=== PATIENT | female | born 1970 | race Caucasian/White ===

== ENCOUNTER → 2018-09-01 | Outpatient (CLI) | payer BC ==
[2015-07-02 10:51] VITALS: BP 91/47
[~2018-09-01] MED LIST: ACET500T68 PO; HYDR-2765 PO; IBUP-1027 PO; KETO15VI18 IJ; MULT-246 PO; NAPR220C4 PO; OMEP20CA9 PO; TAMS0.4C97 PO
--- NOTE | 2018-09-01 16:13 | KCIC ---
EXAMINATION: Magnetic resonance imaging (MRI) of the cervical spine without contrast 09/01/2018 2:45 PM HISTORY: Right shoulder pain. Neck and right shoulder pain. 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 TECHNIQUE: Multiplanar multi-weighted MRI of the cervical spine was performed without intravenous contrast using the standard cervical spine protocol. Contrast information: None administered COMPARISON: None available. FINDINGS: There is minimal retrolisthesis of C5 on C6. Vertebral bodies demonstrate normal signal intensity on all sequences. No acute fracture is identified; however, if trauma is suspected, a CT scan would be a more sensitive examination for fractures. The craniocervical junction is normal. The visualized portions of the skull base and the posterior fossa are normal. The spinal cord demonstrates normal signal intensity on all sequences. There is mild disc height loss at C5-C6 with disc desiccation. No soft tissue abnormality is identified. Normal signal voids are present in the vertebral arteries. C2-C3: The disk is normal in configuration. There is no facet arthropathy. There is no uncovertebral joint disease. There is no neuroforaminal stenosis. There is no spinal canal stenosis. C3-C4: There is mild disc bulge. There is no facet arthropathy. There is no uncovertebral joint disease. There is no neuroforaminal stenosis. There is no spinal canal stenosis. C4-C5: There is a posterior disc osteophyte complex asymmetric to the left. There is mild facet arthropathy. There is mild uncovertebral joint disease. There is mild bilateral neuroforaminal stenosis. There is mild spinal canal stenosis. C5-C6: There is a posterior disc osteophyte complex. There is mild facet arthropathy. There is mild to moderate uncovertebral joint disease. There is mild to moderate right and mild left neuroforaminal stenosis. There is mild spinal canal stenosis. C6-C7: There is a posterior disc osteophyte complex. There is mild facet arthropathy. There is mild uncovertebral joint disease. There is mild neuroforaminal stenosis. There is no spinal canal stenosis. C7-T1: The disk is normal in configuration. There is no facet arthropathy. There is no uncovertebral joint disease. There is no neuroforaminal stenosis. There is no spinal canal stenosis. IMPRESSION: Mild degenerative changes of the cervical spine as described in detail above. Electronically signed by: Isidra Kelley MD (09/01/2018 3:35 PM) [facility]
== END | disposition home or self-care (01) ==
LOC: KCIC MRI 14:34
PROVIDERS: ATTEND Orthopaedic Surgery
DX: M25.511 Pain in right shoulder (principal); M47.892 Other spondylosis, cervical region; M48.02 Spinal stenosis, cervical region; M25.78 Osteophyte, vertebrae; M12.88 Other specific arthropathies, not elsewhere classified, other specified site
CPT/HCPCS: 72141

== ENCOUNTER 2020-05-19 15:39 | Emergency (ER) | payer OTHER, BC ==
[~2020-05-19] VITALS: Ht 162.6 cm; Wt 68.9 kg
[~2020-05-19 15:39] MED LIST changes: +OMEP20CA16 PO; -OMEP20CA9 PO
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
[2020-05-19] MEDS ORDERED: CYCL10TA2 PO (17:45)
[2020-05-19] MEDS ORDERED: NAPR-514 PO (17:45)
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
[2020-05-19 17:56] VITALS: BP 118/60
== END 2020-05-19 17:56 | disposition home or self-care (01) ==
LOC: ER 15:39
DX: S39.012A Strain of muscle, fascia and tendon of lower back, initial encounter (principal); R07.89 Other chest pain; M54.2 Cervicalgia; R07.81 Pleurodynia; M79.7 Fibromyalgia; Z90.710 Acquired absence of both cervix and uterus; Z98.890 Other specified postprocedural states; V49.9XXA Car occupant (driver) (passenger) injured in unspecified traffic accident, initial encounter; Y93.89 Activity, other specified; Y92.413 State road as the place of occurrence of the external cause; Y99.8 Other external cause status
CPT/HCPCS: 71101; 99283

== ENCOUNTER 2020-11-22 06:21 | Emergency (ER) | payer BC, OTHER ==
[~2020-11-22] VITALS: Ht 162.6 cm; Wt 64.5 kg
[~2020-11-22 06:21] MED LIST changes: +CYCL10TA2 PO; +NAPR-514 PO
[2020-11-22] MEDS ORDERED: IV NORMAL SALINE 1000ML BAG 1,000 ML IV SCH (06:45)
[2020-11-22] MEDS ORDERED: ONDANSETRON PF 4 MG/2 ML VIAL. IVP ONE (06:45)
[2020-11-22] MEDS ORDERED: KETOROLAC 30 MG/ML VIAL. IVP ONE (06:45)
--- NOTE | 2020-11-22 06:46 | PHYS DOC ---
Past Medical History Past Medical History: Other Additional Past Medical Histor: FIBROMYALGIA Past Surgical History: Hysterectomy, Other Additional Past Surgical Histo: breast augmentation Smoking Status: Never Smoker Alcohol Use: Rarely Drug Use: None Adult General Chief Complaint Chief Complaint: FLANK PAIN [facility] HPI Patient is a 49 year old female with a past medical history of kidney stones and fibromyalgia now presents emergency department complaining of new onset of bilateral flank pain. Patient states her last 2 months ago having worsening s ensation of bilateral flank pain which primarily starts in the upper portion of the back and radiates to the anterior ribs. Patient states been associated with mild nausea. Patient notes that the pain is constant but it does have some fluctuating intensity throughout the day most severe in the mornings or when she is lying down. Patient notes that for example last 1:59 AM she was lying in bed and suddenly had spasm and pain. Patient states this does feel similar to when she previously was diagnosed with renal stone. Patient also notes that she was seen by her primary care physician approximately 1 week ago was noted to have a large amount of blood in her urine. Patient has required lithotripsy in the past. Currently denies any fever, chills, nausea, vomiting, dizziness or lightheadedness Review of Systems Review of Systems Constitutional: Denies fever or chills [] Eyes: Denies change in visual acuity, redness, or eye pain [] HENT: Denies nasal congestion or sore throat [] Respiratory: Denies cough or shortness of breath [] Cardiovascular: No additional information not addressed in HPI [] GI: Denies abdominal pain, nausea, vomiting, bloody stools or diarrhea [] : Denies dysuria or hematuria [] Musculoskeletal: Denies back pain or joint pain [] Integument: Denies rash or skin lesions [] Neurologic: Denies headache, focal weakness or sensory changes [] Endocrine: Denies polyuria or polydipsia [] All other systems were reviewed and found to be within normal limits, except as documented in this note. Current Medications Current Medications Current Medications Medications (Trade) Dose Ordered Sig/Jackeline Start Time Stop Time Status Last Admin Dose Admin Ketorolac Tromethamine (Toradol 30mg Vial) 30 mg 1X ONCE 11/22/20 06:45 11/22/20 06:46 DC 11/22/20 07:03 30 MG Ondansetron HCl (Zofran) 4 mg 1X ONCE 11/22/20 06:45 11/22/20 06:46 DC 11/22/20 07:02 4 MG Sodium Chloride 1,000 ml @ 1,000 mls/hr Q1H 11/22/20 06:45 11/22/20 07:44 DC 11/22/20 07:03 1,000 MLS/HR Allergies Allergies Allergies Coded Allergies Type Severity Reaction Last Updated Verified Cephalosporins Allergy Unknown 11/22/20 Yes Uncoded Allergies Type Severity Reaction Last Updated Verified "a real strong antibiotic" Allergy Intermediate hives 05/19/20 Physical Exam Physical Exam Constitutional: Well developed, well nourished, no acute distress, non-toxic appearance. [] HENT: Normocephalic, atraumatic, bilateral external ears normal, oropharynx moist, no oral exudates, nose normal. [] Eyes: PERRLA, EOMI, conjunctiva normal, no discharge. [] Neck: Normal range of motion, no tenderness, supple, no stridor. [] Cardiovascular:Heart rate regular rhythm, no murmur [] Lungs & Thorax: Bilateral breath sounds clear to auscultation [] Abdomen: Bowel sounds normal, soft, no tenderness, no masses, no pulsatile masses. [] Skin: Warm, dry, no erythema, no rash. [] Back: No tenderness, no CVA tenderness. [] Extremities: No tenderness, no cyanosis, no clubbing, ROM intact, no edema. [] Neurologic: Alert and oriented X 3, normal motor function, normal sensory function, no focal deficits noted. [] Psychologic: Affect normal, judgement normal, mood normal. [] Current Patient Data Vital Signs Vital Signs Date Time Temp Pulse Resp B/P (MAP) Pulse Ox O2 Delivery O2 Flow Rate FiO2 11/22/20 06:30 98.5 74 18 114/71 (85) 100 Room Air 98.5 Lab Values Laboratory Tests Test 11/22/20 06:30 11/22/20 06:32 11/22/20 06:38 Urine Collection Type Void Urine Color Yellow Urine Clarity Clear Urine pH 5.5 (<5.0-8.0) Urine Specific [place] 1.025 (1.000-1.030) Urine Protein Negative mg/dL (NEG-TRACE) Urine Glucose (UA) Negative mg/dL (NEG) Urine Ketones (Stick) Negative mg/dL (NEG) Urine Blood Moderate (NEG) Urine Nitrite Negative (NEG) Urine Bilirubin Negative (NEG) Urine Urobilinogen Dipstick 0.2 mg/dL (0.2 mg/dL) Urine Leukocyte Esterase Negative (NEG) Urine RBC 0 /HPF (0-2) Urine WBC 1-4 /HPF (0-4) Urine Squamous Epithelial Cells Mod /LPF Urine Bacteria 0 /HPF (0-FEW) Urine Hyaline Casts Few /HPF Urine Mucus Mod /LPF POC Urine HCG, Qualitative Hcg negative (Negative) White Blood Count 5.4 x10^3/uL (4.0-11.0) Red Blood Count 4.38 x10^6/uL (3.50-5.40) Hemoglobin 13.1 g/dL (12.0-15.5) Hematocrit 38.1 % (36.0-47.0) Mean Corpuscular Volume 87 fL (79-100) Mean Corpuscular Hemoglobin 30 pg (25-35) Mean Corpuscular Hemoglobin Concent 34 g/dL (31-37) Red Cell Distribution Width 13.3 % (11.5-14.5) Platelet Count 322 x10^3/uL (140-400) Neutrophils (%) (Auto) 54 % (31-73) Lymphocytes (%) (Auto) 33 % (24-48) Monocytes (%) (Auto) 8 % (0-9) Eosinophils (%) (Auto) 4 % (0-3) H Basophils (%) (Auto) 1 % (0-3) Neutrophils # (Auto) 2.9 x10^3/uL (1.8-7.7) Lymphocytes # (Auto) 1.8 x10^3/uL (1.0-4.8) Monocytes # (Auto) 0.4 x10^3/uL (0.0-1.1) Eosinophils # (Auto) 0.2 x10^3/uL (0.0-0.7) Basophils # (Auto) 0.1 x10^3/uL (0.0-0.2) Sodium Level 138 mmol/L (136-145) Potassium Level 3.7 mmol/L (3.5-5.1) Chloride Level 103 mmol/L (98-107) Carbon Dioxide Level 29 mmol/L (21-32) Anion Gap 6 (6-14) Blood Urea Nitrogen 9 mg/dL (7-20) Creatinine 0.8 mg/dL (0.6-1.0) Estimated GFR (Cockcroft-Gault) 76.6 BUN/Creatinine Ratio 11 (6-20) Glucose Level 94 mg/dL (70-99) Calcium Level 9.2 mg/dL (8.5-10.1) Total Bilirubin 0.5 mg/dL (0.2-1.0) Aspartate Amino Transferase (AST) 24 U/L (15-37) Alanine Aminotransferase (ALT) 52 U/L (14-59) Alkaline Phosphatase 120 U/L (46-116) H Total Protein 8.1 g/dL (6.4-8.2) Albumin 3.6 g/dL (3.4-5.0) Albumin/Globulin Ratio 0.8 (1.0-1.7) L Laboratory Tests 11/22/20 06:38 Laboratory Tests 11/22/20 06:38 EKG EKG [] Radiology/Procedures Radiology/Procedures [] Course & Med Decision Making Course & Med Decision Making Pertinent Labs and Imaging studies reviewed. (See chart for details) 49f with new onset back and upper abdominal pain most consistent with an acute onset of renal stones. At this time will obtain labs to ensure there is no significant underlying etiology and anticipate need for CT scan to make sure there is no obstructing stones. 08:25 -CT scan does demonstrate what appears to be a small 2 mm ureteral stone on the right. Patient symptoms improved. At this time will discharge home with pain control and urology follow-up Sarahi Disclaimer Sarahi Disclaimer This electronic medical record was generated, in whole or in part, using a voice recognition dictation system. Departure Departure Impression: Primary Impression: Kidney stone on right side Disposition: 01 DC HOME SELF CARE/HOMELESS Condition: GOOD Patient Instructions: Kidney Stones Additional Instructions: [facility] [phone] EMERGENCY DEPARTMENT GENERAL DISCHARGE INSTRUCTIONS Thank you for coming to [facility] Emergency Department (ED) today and trusting us with you care. We trust that you had a positive experience in our Emergency Department. If you wish to speak to the department management, you may call the Director at [phone]. YOUR FOLLOW UP INSTRUCTIONS ARE FOLLOWS: 1. Do you have a private Doctor? If you do not have a private doctor, please ask for a resource list of physicians or clinics that may be able to assist you with follow up care. 2. The Emergency Physicain has interpreted your x-rays. The X-Ray specialist will also review them. If there is a change in the findings, you will be notified in 48 hours when at all possible. 3. A lab test or culture has been done, your results will be reviewed and you will be notified if you need a change in treatment. ADDITIONAL INSTRUCTIONS AND INFORMATION: 1. Your care today has been supervised by a physician who is specially trained in emergency care. Many problems require more than one evaluation for a complete diagnosis and treatment. We recommend that you schedule your follow up appointment as recommended to ensure complete treatment of you illness or injury. If you are unable to obtain follow up care and continue to have a problem, or if your condition worsens, we recommend that you return to the ED. 2. We are not able to safely determine your condition over the phone nor are we able to give sound medical advice over the phone. For these safety reasons, if you call for medical advice we will ask you to come to the ED for further evaluation. 3. If you have any questions regarding these discharge instructions please call the ED at [phone]. SAFETY INFORMATION: In the interest of safety, wellness, and injury prevention; we encourage you to wear your sealbelt, if you smoke; quite smoking, and we encourage family to use a protective helmet for bicycling and other sporting events that present an increased risk for head injury. IF YOUR SYMPTOMS WORSEN OR NEW SYMPTOMS DEVELOP, OR YOU HAVE CONCERNS ABOUT YOUR CONDITION; OR IF YOUR CONDITION WORSENS WHILE YOU ARE WAITING FOR YOUR FOLLOW UP APPOINTMENT; EITHER CONTACT YOUR PRIMARY CARE DOCTOR, THE PHYSICIAN WHOSE NAME AND NUMBER YOU WERE GIVEN, OR RETURN TO THE ED IMMEDIATELY. Scripts Oxycodone/Apap 5-325 (PERCOCET 5-325 MG TABLET ) 1 Each Tablet 1 TAB PO PRN Q6HRS PRN for PAIN, #12 TAB 0 Refills Prov: BOBBY PICKENS MD 11/22/20 Tamsulosin Hcl (FLOMAX) 0.4 Mg Cap.er.24h 1 CAP PO DAILY, #30 CAP 11 Refills Prov: BOBBY PICKENS MD 11/22/20 BOBBY PICKENS MD Nov 22, 2020 06:46
[2020-11-22 07:00] LABS: CALCIUM 9.2 mg/dL (8.5-10.1); CREATININE 0.8 mg/dL (0.6-1.0); GFR 76.6; POTASSIUM 3.7 mmol/L (3.5-5.1)
[2020-11-22 07:02] LABS: BASO # 0.1 x10^3/uL (0.0-0.2); BASO % 1 % (0-3); EOS # 0.2 x10^3/uL (0.0-0.7); EOS % 4 % (0-3); HEMATOCRIT 38.1 % (36.0-47.0); HEMOGLOBIN 13.1 g/dL (12.0-15.5); LYMPH # 1.8 x10^3/uL (1.0-4.8); LYMPH % 33 % (24-48); MEAN CORPUSCULAR HEMOGLOBIN 30 pg (25-35); MEAN CORPUSCULAR HGB CONC 34 g/dL (31-37); MEAN CORPUSCULAR VOLUME 87 fL (79-100); MONO # 0.4 x10^3/uL (0.0-1.1); MONO % 8 % (0-9); NEUT # 2.9 x10^3/uL (1.8-7.7); NEUT % 54 % (31-73); PLATELET COUNT 322 x10^3/uL (140-400); RED BLOOD COUNT 4.38 x10^6/uL (3.50-5.40); RED CELL DISTRIBUTION WIDTH 13.3 % (11.5-14.5); WHITE BLOOD COUNT 5.4 x10^3/uL (4.0-11.0)
[2020-11-22 07:06] LABS: ALBUMIN 3.6 g/dL (3.4-5.0); ALBUMIN/GLOBULIN RATIO 0.8 (1.0-1.7); TOTAL BILIRUBIN 0.5 mg/dL (0.2-1.0); TOTAL PROTEIN 8.1 g/dL (6.4-8.2)
[2020-11-22 07:11] LABS: BILIRUBIN,URINE NEGATIVE (NEG); CLARITY,URINE CLEAR; COLOR,URINE YELLOW; NITRITE,URINE NEGATIVE (NEG); PH,URINE 5.5 (<5.0-8.0); PROTEIN,URINE NEGATIVE (NEG-TRACE); UROBILINOGEN,URINE 0.2 mg/dL (0.2 mg/dL)
[2020-11-22 07:24] LABS: HYALINE CASTS, URINE FEW /HPF
[2020-11-22 07:25] LABS: BACTERIA,URINE 0 /HPF (0-FEW); RBC,URINE 0 /HPF (0-2)
--- NOTE | 2020-11-22 08:04 | RAD ---
PQRS Compliance Statement: One or more of the following individualized dose reduction techniques were utilized for this examinat ion: 1. Automated exposure control 2. Adjustment of the mA and/or kV according to patient size 3. Use of iterative reconstruction technique Exam performed: CT scan of the abdomen and pelvis without contrast. Clinical Indication: Reason: abd pain / Spl. Instructions: / History: Date of Service: 11/22/2020 7:27 AM. Comparison: CT abdomen and pelvis from 06/24/2014 Technique: Contiguous helical acquisitions are obtained through the abdomen and pelvis without IV con trast. Sagittal and coronal reformatted images are obtained and reviewed. CT abdomen and pelvis findings: The lung bases are essentially clear. Visualized heart is normal. Lack of IV contrast limits evaluation of abdominal viscera, however the liver, spleen and pancreas ar e normal. Cholecystectomy. Both adrenal glands and bilateral kidneys are normal in size without hydro nephrosis or nephrolithiasis. Aorta is normal in caliber without aneurysm. Small bowel loops are no rmal in caliber. There is scattered stool in the colon. The visualized portion of the appendix is unr emarkable. There is a tiny approximately 2 mm calcific density in line with the lower right ureter with associat ed inflammatory changes. This was not clearly identified previously (best seen on axial image 165/221 ). Distal ureters are nondilated. Urinary bladder is decompressed. [Hysterectomy. No adnexal masses seen.] No free or focal fluid collections are identified. Impression: Tiny 2 mm calcific density along the distal right ureter with mild adjacent inflammatory changes. Fin dings are perhaps related to tiny distal right ureteric calculus. Correlate with UA findings No evide nce of obstructive urolithiasis seen. Scattered stool throughout the colon. Correlate clinically for constipation. Electronically signed by: Shawna Anne MD (11/22/2020 8:01 AM) [id number]
[2020-11-22] MEDS ORDERED: TAMS0.4C97 PO (08:32)
[2020-11-22] MEDS ORDERED: OXYC-325 PO (08:32)
[2020-11-22] MEDS ORDERED: OXYC1TAB15 PO (08:33)
[2020-11-22 08:39] VITALS: BP 106/59
== END 2020-11-22 09:01 | disposition home or self-care (01) ==
LOC: ER 06:21
DX: N20.0 Calculus of kidney (principal); Z90.710 Acquired absence of both cervix and uterus; Z88.1 Allergy status to other antibiotic agents
CPT/HCPCS: 36415; 74176; 80053; 81001; 81025; 85025; 96361; 96374; 96375; 99284; J1885; J2405; J7030

== ENCOUNTER 2021-10-10 11:35 | Emergency (ER) | payer BC ==
[~2021-10-10] VITALS: Ht 162.6 cm; Wt 71.5 kg
[~2021-10-10 11:35] MED LIST changes: +CYCL10TA19 PO; -CYCL10TA2 PO; +OXYC-325 PO; +OXYC1TAB15 PO
--- NOTE | 2021-10-10 11:43 | PHYS DOC ---
Past Medical History Past Medical History: Bronchitis, Other Additional Past Medical Histor: FIBROMYALGIA, COVID + 1 month ago Past Surgical History: Hysterectomy, Other Additional Past Surgical Histo: breast augmentation and kidney stone removal Smoking Status: Never Smoker Alcohol Use: Rarely Drug Use: None General Adult EDM: Chief Complaint: FLANK PAIN HPI: HPI: Patient is a 50 year old female who presents with right-sided flank pain that radiates into her lower right abdomen. Patient states that she has a history of kidney stones and her symptoms feel like they did the last time she had a stone. Patient states that she had to have surgery last time. Denies vomiting but reports nausea. Denies fever. Denies chest pain, shortness of breath. Denies taking anything for pain at home. Patient has history of fibromyalgia, kidney stones. Review of Systems: Review of Systems: ROS At least 10 ROS systems have been reviewed and are negative except as documented in the HPI. General: Negative except as outlined in HPI above. Skin: Negative except as outlined in HPI above. HEENT: Negative except as outlined in HPI above. Neck: Negative except as outlined in HPI above. Respiratory: Negative except as outlined in HPI above.. Cardiovascular: Negative except as outlined in HPI above. Abdomen: Negative except as outlined in HPI above. : Negative except as outlined in HPI above. Back/MSK: Negative except as outlined in HPI above. Neuro: Negative except as outlined in HPI above. Psych: Negative except as outlined in HPI above. Heart Score: C/O Chest Pain: No Risk Factors: Risk Factors: DM, Current or recent (<one month) smoker, HTN, HLP, family history of CAD, obesity. Risk Scores: Score 0 - 3: 2.5% MACE over next 6 weeks - Discharge Home Score 4 - 6: 20.3% MACE over next 6 weeks - Admit for Clinical Observation Score 7 - 10: 72.7% MACE over next 6 weeks - Early Invasive Strategies Allergies: Allergies: Allergies Coded Allergies Type Severity Reaction Last Updated Verified Cephalosporins Allergy Unknown 11/22/20 Yes Uncoded Allergies Type Severity Reaction Last Updated Verified "a real strong antibiotic" Allergy Intermediate hives 05/19/20 Physical Exam: PE: Constitutional: Well developed, well nourished, no acute distress, non-toxic appearance. [] HENT: Normocephalic, atraumatic, bilateral external ears normal, oropharynx moist, no oral exudates, nose normal. [] Eyes: PERRLA, EOMI, conjunctiva normal, no discharge. [] Neck: Normal range of motion, no tenderness, supple, no stridor. [] Cardiovascular:Heart rate regular rhythm, no murmur [] Lungs & Thorax: Bilateral breath sounds clear to auscultation [] Abdomen: Bowel sounds normal, soft, right sided lower tenderness Skin: Warm, dry, no erythema, no rash. [] Back: No tenderness, right CVA tenderness. [] Extremities: No tenderness, no cyanosis, no clubbing, ROM intact, no edema. [] Neurologic: Alert and oriented X 3, normal motor function, normal sensory function, no focal deficits noted. [] Psychologic: Affect normal, judgement normal, mood normal. [] EKG: EKG: [] Radiology/Procedures: Radiology/Procedures: []CT abdomen pelvis without contrast dated 10/10/2021. COMPARISON: None. INDICATION: Flank pain. TECHNIQUE: Contiguous axial imaging the abdomen pelvis performed without the administration of IV or oral contrast. One or more of the following individualized dose reduction techniques were utilized for this examination: 1. Automated exposure control 2. Adjustment of the mA and/or kV according to patient size 3. Use of iterative reconstruction technique FINDINGS: Limited images of lung bases are clear. Linear bands of increased density in the left lower lobe, likely scar or atelectasis. Heart size is upper limits of normal. No pleural or pericardial effusion. Bilateral breast implants. Solid abdominal viscera not well evaluated in the absence of contrast material. No apparent attenuation abnormality of the liver or spleen. Pancreas, adrenal glands unremarkable. Gallbladder surgically absent. Kidneys are symmetric in size. No stone or hydronephrosis. No inflammatory changes in the perinephric fat. Unopacified GI tract normal in caliber and contour. No bowel wall thickening. The appendix is normal in caliber. No ascites or lymphadenopathy. Abdominal aorta normal in caliber. Images of pelvis a nondistended urinary bladder. Uterus is surgically absent. No free fluid or pelvic adenopathy. There are couple of borderline enlarged bilateral inguinal lymph nodes, nonspecific. Bone windows show no acute finding. Multilevel spondylosis. IMPRESSION: 1. No acute abnormality of abdomen or pelvis. No renal stone or hydronephrosis. 2. Normal appendix. 3. Status post cholecystectomy and hysterectomy. Electronically signed by: Pierce Randall MD (10/10/2021 12:27 PM) [id number] DICTATED and SIGNED BY: PIERCE RANDALL MD DATE: 10/10/21 [id number] Course & Med Decision Making: Course & Med Decision Making Pertinent Labs and Imaging studies reviewed. (See chart for details) [] 50-year-old female presents with right lower abdominal pain that radiates to her right flank. Patient has a history of kidney stones. Work-up in ER consisted of labs, urinalysis, CT abdomen pelvis. Patient's pain and nausea was treated in the ER. UA positive for moderate blood. All other labs are unremarkable. Discussed all results with patient. Patient states her pain has resolved. Patient possibly had a kidney stone that she passed, which is still causing discomfort. Patient being sent home with pain medication and Zofran. Advised patient to follow-up with her PCP. Discussed return precautions in length. Patient verbalizes understanding of discharge instructions. Dragon Disclaimer: Sarahi Disclaimer: This electronic medical record was generated, in whole or in part, using a voice recognition dictation system. Departure Departure Impression: Primary Impression: Flank pain Disposition: HOME / SELF CARE / HOMELESS Condition: STABLE Referrals: WALE KUHN MD (PCP) Patient Instructions: Flank Pain, [id number] Additional Instructions: Your seen emergency room for flank pain and lower abdominal pain. Your CT of your abdomen pelvis was unremarkable. You did have moderate blood in your urine. You possibly had a kidney stone that you have already passed and we are unable to see it on the CT. That can still produce pain. I am going to send you home with some pain medication and nausea medication. Please return to the emergency room if you have an increase in pain, uncontrolled vomiting or any concerning symptoms. Otherwise follow-up with your PCP next week for further management. EMERGENCY DEPARTMENT GENERAL DISCHARGE INSTRUCTIONS Thank you for coming to [facility] Emergency Department (ED) today and trusting us with you care. We trust that you had a positive experience in our Emergency Department. If you wish to speak to the department management, you may call the Director at [phone]. YOUR FOLLOW UP INSTRUCTIONS ARE FOLLOWS: 1. Do you have a private Doctor? If you do not have a private doctor, please a sk for a resource list of physicians or clinics that may be able to assist you with follow up care. 2. The Emergency Physicain has interpreted your x-rays. The X-Ray specialist will also review them. If there is a change in the findings, you will be notified in 48 hours when at all possible. 3. A lab test or culture has been done, your results will be reviewed and you will be notified if you need a change in treatment. ADDITIONAL INSTRUCTIONS AND INFORMATION: 1. Your care today has been supervised by a physician who is specially trained in emergency care. Many problems require more than one evaluation for a complete diagnosis and treatment. We recommend that you schedule your follow up appointment as recommended to ensure complete treatment of you illness or injury. If you are unable to obtain follow up care and continue to have a problem, or if your condition worsens, we recommend that you return to the ED. 2. We are not able to safely determine your condition over the phone nor are we able to give sound medical advice over the phone. For these safety reasons, if you call for medical advice we will ask you to come to the ED for further evaluation. 3. If you have any questions regarding these discharge instructions please call the ED at [phone]. SAFETY INFORMATION: In the interest of safety, wellness, and injury prevention; we encourage you to wear your sealbelt, if you smoke; quite smoking, and we encourage family to use a protective helmet for bicycling and other sporting events that present an increased risk for head injury. IF YOUR SYMPTOMS WORSEN OR NEW SYMPTOMS DEVELOP, OR YOU HAVE CONCERNS ABOUT YOUR CONDITION; OR IF YOUR CONDITION WORSENS WHILE YOU ARE WAITING FOR YOUR FOLLOW UP APPOINTMENT; EITHER CONTACT YOUR PRIMARY CARE DOCTOR, THE PHYSICIAN WHOSE NAME AND NUMBER YOU WERE GIVEN, OR RETURN TO THE ED IMMEDIATELY. Scripts Hydrocodone Bit/Acetaminophen (HYDROCODONE-APAP 5-325 ) 1 Tab Tablet 1 TAB PO PRN Q6HRS PRN for PAIN for 3 Days, #10 TAB 0 Refills Prov: MITCHELL MASSEY APRN 10/10/21 Ondansetron (ONDANSETRON ODT) 4 Mg Tab.rapdis 4 MG PO BID PRN for NAUSEA/VOMITING for 7 Days, #14 TAB Prov: MITCHELL MASSEY APRN 10/10/21 MITCHELL MASSEY APRN Oct 10, 2021 11:43
[2021-10-10] MEDS ORDERED: ONDANSETRON PF 4 MG/2 ML VIAL. IVP PRN (11:45)
[2021-10-10] MEDS ORDERED: KETOROLAC 15 MG/ML VIAL. IVP ONE (11:45)
[2021-10-10] MEDS ORDERED: IV NORMAL SALINE 1000ML BAG 1,000 ML IV ONE (11:45)
[2021-10-10 11:50] LABS: BILIRUBIN,URINE NEGATIVE (NEG); CLARITY,URINE CLEAR; COLOR,URINE YELLOW; NITRITE,URINE NEGATIVE (NEG); PROTEIN,URINE NEGATIVE (NEG-TRACE); UROBILINOGEN,URINE 0.2 mg/dL (0.2 mg/dL)
[2021-10-10 12:02] LABS: BACTERIA,URINE 0 /HPF (0-FEW); WBC,URINE 0 /HPF (0-4)
[2021-10-10 12:05] VITALS: BP 115/58
--- NOTE | 2021-10-10 12:30 | RAD ---
CT abdomen pelvis without contrast dated 10/10/2021. COMPARISON: None. INDICATION: Flank pain. TECHNIQUE: Contiguous axial imaging the abdomen pelvis performed without the administration of IV or oral contra st. One or more of the following individualized dose reduction techniques were utilized for this examinat ion: 1. Automated exposure control 2. Adjustment of the mA and/or kV according to patient size 3. Use of iterative reconstruction technique FINDINGS: Limited images of lung bases are clear. Linear bands of increased density in the left lower lobe, lik abelardo scar or atelectasis. Heart size is upper limits of normal. No pleural or pericardial effusion. Bi lateral breast implants. Solid abdominal viscera not well evaluated in the absence of contrast material. No apparent attenuati on abnormality of the liver or spleen. Pancreas, adrenal glands unremarkable. Gallbladder surgically absent. Kidneys are symmetric in size. No stone or hydronephrosis. No inflammatory changes in the perinephric fat. Unopacified GI tract normal in caliber and contour. No bowel wall thickening. The appendix is normal in caliber. No ascites or lymphadenopathy. Abdominal aorta normal in caliber. Images of pelvis a nondistended urinary bladder. Uterus is surgically absent. No free fluid or pelvic adenopathy. There are couple of borderline enlarged bilateral inguinal lymph nodes, nonspecific. Bone windows show no acute finding. Multilevel spondylosis. IMPRESSION: 1. No acute abnormality of abdomen or pelvis. No renal stone or hydronephrosis. 2. Normal appendix. 3. Status post cholecystectomy and hysterectomy. Electronically signed by: Pierce Randall MD (10/10/2021 12:27 PM) [id number]
[2021-10-10 12:31] LABS: BASO # 0.1 x10^3/uL (0.0-0.2); BASO % 1 % (0-3); EOS # 0.2 x10^3/uL (0.0-0.7); EOS % 3 % (0-3); HEMATOCRIT 36.2 % (36.0-47.0); HEMOGLOBIN 12.5 g/dL (12.0-15.5); LYMPH % 25 % (24-48); MEAN CORPUSCULAR HEMOGLOBIN 30 pg (25-35); MEAN CORPUSCULAR HGB CONC 35 g/dL (31-37); MEAN CORPUSCULAR VOLUME 87 fL (79-100); MONO # 0.8 x10^3/uL (0.0-1.1); MONO % 10 % (0-9); NEUT # 4.9 x10^3/uL (1.8-7.7); NEUT % 62 % (31-73); PLATELET COUNT 287 x10^3/uL (140-400); RED BLOOD COUNT 4.17 x10^6/uL (3.50-5.40); RED CELL DISTRIBUTION WIDTH 13.1 % (11.5-14.5); WHITE BLOOD COUNT 7.9 x10^3/uL (4.0-11.0)
[2021-10-10 12:40] LABS: CALCIUM 8.9 mg/dL (8.5-10.1); CREATININE 0.8 mg/dL (0.6-1.0); GFR 76.2; POTASSIUM 3.6 mmol/L (3.5-5.1)
[2021-10-10 12:48] LABS: ALBUMIN 3.4 g/dL (3.4-5.0); ALBUMIN/GLOBULIN RATIO 0.8 (1.0-1.7); TOTAL BILIRUBIN 0.3 mg/dL (0.2-1.0); TOTAL PROTEIN 7.9 g/dL (6.4-8.2)
[2021-10-10] MEDS ORDERED: ONDA4TAB12 PO (13:11)
[2021-10-10] MEDS ORDERED: HYDR-2761 PO (13:11)
--- NOTE | 2021-10-10 15:28 | EKG ---
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
== END 2021-10-10 13:46 | disposition home or self-care (01) ==
LOC: ER 11:35
DX: R10.31 Right lower quadrant pain (principal); R11.0 Nausea; Z90.710 Acquired absence of both cervix and uterus
CPT/HCPCS: 36415; 74176; 80053; 81001; 81025; 85025; 93005; 96361; 96374; 96375; 99285; J1885; J2405; J7030